=== PATIENT | female | born 1965 | race American Indian/Alaskan Native ===

== ENCOUNTER 2016-11-23 17:36 | Emergency (ER) | payer SELFPAY ==
[2016-11-23 18:23] LABS: Hematocrit 41.5 % (30.3-42.9); Hemoglobin 13.3 gm/dl (10.1-14.3); Mean Corpuscular HGB Conc 32 % (30-34); Mean Corpuscular Volume 79 fl (79-97); Platelet Count 273 K/mm3 (140-440); Red Blood Count 5.27 M/mm3 (3.65-5.03); Red Cell Distribution Width 16.6 % (13.2-15.2); White Blood Count 4.7 K/mm3 (4.5-11.0)
[2016-11-23 18:30] LABS: Mean Corpuscular Hemoglobin 25 pg (28-32)
[2016-11-23 18:35] LABS: BUN/Creatinine Ratio 14.28; Blood Urea Nitrogen 10 mg/dL (7-17); Calcium 9.4 mg/dL (8.4-10.2); Carbon Dioxide 26 mmol/L (22-30); Glucose 121 mg/dL (65-100)
[2016-11-23 18:36] LABS: Anion Gap 15 mmol/L; Chloride 101.3 mmol/L (98-107); Potassium 3.7 mmol/L (3.6-5.0); Sodium 139 mmol/L (137-145)
[2016-11-23 19:30] LABS: Bilirubin,Urine NEG (Negative); Blood,Urine NEG (Negative); Ketones,Urine NEG (Negative); Leukocyte Esterase,Urine NEG (Negative); Mucus,Urine FEW /HPF; Nitrite,Urine NEG (Negative); Protein,Urine <15 mg/dL mg/dL (Negative); Urobilinogen,Urine < 2.0 mg/dL (<2.0); WBC,Urine < 1.0 /HPF (0.0-6.0)
[2016-11-23] MEDS ORDERED: CATAPRES ONE (23:18)
[2016-11-23] MEDS ORDERED: CATAPRES PO ONE (23:27)
--- NOTE | 2016-11-24 03:18 | Emergency Department Report ---
- General Chief complaint: Weakness Stated complaint: ELEVATED B/P Time Seen by Provider: 11/24/16 02:35 Source: patient Mode of arrival: Wheelchair Limitations: No Limitations - History of Present Illness Initial comments: 51-year-old female with a past medical history of hypertension presents to the hospital complaining of weakness and elevated blood pressure. Patient states that at her home last night a piece of a feeling crash striking her in her head. Patient denies LOC. She complains some mild aching to her left flank. Patient states she was stressed out from the episode and suspects that caused her elevation in blood pressure. Patient complained of 4/10 headache upon arrival but states she is pain-free now. No other parts of nausea, neck pain, chest pain, shortness of breath vomiting, or focal weakness. Triage reports no past medical history. Patient states she had elevated blood pressure 4 years ago and discontinued the blood pressure medication because of the side effects. She states that her sister checks her blood pressure at home and states that it runs "okay". Patient does not know the systolic or diastolic numbers. Patient does not have a doctor. Severity scale (0 -10): 10 - Related Data Previous Rx's Medication Instructions Recorded Last Taken Type amLODIPine [Norvasc] 5 mg PO DAILY #30 tab 11/24/16 Unknown Rx Allergies Allergy/AdvReac Type Severity Reaction Status Date / Time No Known Allergies Allergy Verified 11/23/16 23:24 ED Review of Systems ROS: Stated complaint: ELEVATED B/P Other details as noted in HPI Comment: All other systems reviewed and negative Other: Constitutional: No fevers chills Eyes: No eye pain visual changes ENT: No ear pain or throat pain Neck: Denies pain Respiratory: Denies cough wheezing shortness of breath Cardiovascular: Denies chest pain, palpitations, syncope GI: Denies abdominal pain, nausea, vomiting, diarrhea : Denies dysuria Musculoskeletal: as per hpi Skin: Denies rash, lesions, erythema Neurologic: Denies numbness, weakness Psychiatric: Denies suicidal ideation, hallucinations ED Past Medical Hx - Past Medical History Previous Medical History?: No - Surgical History Past Surgical History?: No Additional Surgical History: hysterectomy/fibroids - Social History Smoking Status: Never Smoker Substance Use Type: None - Medications Home Medications: Home Medications Medication Instructions Recorded Confirmed Last Taken Type amLODIPine [Norvasc] 5 mg PO DAILY #30 tab 11/24/16 Unknown Rx ED Physical Exam - General Limitations: No Limitations - Other Other exam information: General: No limitations, patient is alert in no acute distress Head exam: Atraumatic, normocephalic Eyes exam: Normal appearance, pupils equal reactive to light ENT: Moist mucous membrane, normal oropharynx Neck exam: Normal inspection, full range of motion, no midline tenderness Respiratory exam: Clear to auscultation bilateral, no wheezes, rales, crackles Cardiovascular: Normal rate and rhythm, normal heart sounds Abdomen: Soft, nondistended, and nontender, with normal bowel sounds, no rebound, or guarding Extremity: Full range of motion normal inspection no deformity Back: Normal Inspection, full range of motion, minimum tenderness to left flank. No contusion. No midline tenderness Neurologic: Alert, oriented x3, cranial nerves intact, no motor or sensory deficit Psychiatric: normal affect, normal mood Skin: Warm, dry, intact ED Course Vital Signs 11/23/16 11/23/16 11/23/16 17:53 23:15 23:28 Temperature 98.4 F 98.6 F Pulse Rate 72 74 74 Respiratory 18 18 Rate Blood Pressure 200/126 232/95 232/95 Blood Pressure [Right] O2 Sat by Pulse 100 100 Oximetry 11/24/16 00:31 Temperature Pulse Rate 79 Respiratory 18 Rate Blood Pressure Blood Pressure 132/90 [Right] O2 Sat by Pulse 98 Oximetry ED Medical Decision Making - Lab Data Result diagrams: 11/23/16 18:06 11/23/16 18:06 Lab Results 11/23/16 11/23/16 11/23/16 Range/Units 18:06 18:06 18:31 WBC 4.7 (4.5-11.0) K/mm3 RBC 5.27 H (3.65-5.03) M/mm3 Hgb 13.3 (10.1-14.3) gm/dl Hct 41.5 (30.3-42.9) % MCV 79 (79-97) fl MCH 25 L (28-32) pg MCHC 32 (30-34) % RDW 16.6 H (13.2-15.2) % Plt Count 273 (140-440) K/mm3 Sodium 139 (137-145) mmol/L Potassium 3.7 (3.6-5.0) mmol/L Chloride 101.3 (98-107) mmol/L Carbon Dioxide 26 (22-30) mmol/L Anion Gap 15 mmol/L BUN 10 (7-17) mg/dL Creatinine 0.7 (0.7-1.2) mg/dL Estimated GFR > 60 ml/min BUN/Creatinine Ratio 14.28 % Glucose 121 H (65-100) mg/dL Calcium 9.4 (8.4-10.2) mg/dL Urine Color Straw (Yellow) Urine Turbidity Clear (Clear) Urine pH 8.0 H (5.0-7.0) Ur Specific [place] 1.009 (1.003-1.030) Urine Protein <15 mg/dl (Negative) mg/dL Urine Glucose (UA) Neg (Negative) mg/dL Urine Ketones Neg (Negative) mg/dL Urine Blood Neg (Negative) Urine Nitrite Neg (Negative) Urine Bilirubin Neg (Negative) Urine Urobilinogen < 2.0 (<2.0) mg/dL Ur Leukocyte Esterase Neg (Negative) Urine WBC (Auto) < 1.0 (0.0-6.0) /HPF Urine RBC (Auto) 2.0 (0.0-6.0) /HPF U Epithel Cells (Auto) 1.0 (0-13.0) /HPF Urine Mucus Few /HPF - EKG Data -: EKG Interpreted by Me ([id number] [id number], naf) - EKG Data When compared to previous EKG there are: previous EKG unavailable - Medical Decision Making Patient's blood pressure improved after receiving clonidine 0.2 mg. Patient reports feeling better. CT head not obtained patient does not have a LOC or headache. I suspect the patient has long-standing untreated hypertension as indicated by LVH on her EKG. Patient does not see a doctor, does not take blood pressure medications, and has her sister check her blood pressure but she does not know the results. Patient be started on Norvasc 5 mg but will likely need more medication given the significant elevation in her blood pressure here today. Given patient's persistent medication and fear of side effects be started at the starting dose. Patient consulted about the importance of follow- up for medication adjustment. - Differential Diagnosis htn urgency/emergency, stress, ich, Critical Care Time: No Critical care attestation.: If time is entered above; I have spent that time in minutes in the direct care of this critically ill patient, excluding procedure time. ED Disposition Clinical Impression: HTN (hypertension), Minor head injury Disposition: DC-01 TO HOME OR SELFCARE Is pt being admited?: No Does the pt Need Aspirin: No Condition: Stable Instructions: Hypertension (ED), Minor Head Injury (ED), How to Take a Blood Pressure (ED) Additional Instructions: Take the medication as prescribed. You have been started on Norvasc 5 mg once a day however, if your blood pressure remains elevated at this dose and will need to be increased to 10 mg a day. It is very important you follow up with the primary care doctor (options provided) for further monitoring and treatment of your blood pressure. Please return if symptoms worsen as indicated by discharge instructions. Prescriptions: amLODIPine [Norvasc] 5 mg PO DAILY #30 tab Referrals: [facility] [Provider Group] - 3-5 Days [facility] [Outside] - 3-5 Days CHUY STEVENSON MD [Staff Physician] - 3-5 Days Time of Disposition: 03:28
[2016-11-24 05:45] VITALS: BP 138/94
== END 2016-11-24 04:00 | disposition home or self-care (01) ==
LOC: ED 17:36
DX: S09.90XA Unspecified injury of head, initial encounter (principal); I10 Essential (primary) hypertension; W22.8XXA Striking against or struck by other objects, initial encounter; Y93.9 Activity, unspecified; Y92.9 Unspecified place or not applicable; Y99.9 Unspecified external cause status
CPT/HCPCS: 36415; 80048; 81001; 85027; 93005; 93010; 99284